=== PATIENT | female | born 1970 | race African-American/Black ===

== ENCOUNTER 2019-05-19 08:07 | Inpatient (IN) ==
[2019-05-19 08:36] LABS: BASO# 0.02 X1000 (0.0-0.2); BASO% 0.4 % (0.0-0.8); EOS# 0.01 X1000 (0.0-0.7); EOS% 0.2 % (0.0-10.0); HEMATOCRIT 41.3 % (37.0-47.0); IMM GRAN# 0.02 X1000 (0.0-0.04); IMM GRAN% 0.4 % (0.0-0.5); LYMPH# 1.39 X1000 (1.2-3.4); LYMPH% 27.1 % (20.5-51.1); MCH 30.3 PG (27-31); MCHC 31.5 g/dL (33-37); MCV 96.3 FL (81-99); MONO% 9.8 % (1.7-9.3); MPV 10.1 FL (7.4-10.4); NEUT# 3.18 X1000 (1.4-6.5); NEUT% 62.1 % (42.2-75.2); PLT 166 X1000 (130-400); RBC 4.29 XMIL (4.2-5.4); RDW 15.6 % (11.5-14.5); WBC 5.12 X1000 (4.8-10.8)
[2019-05-19 09:00] LABS: INR 1.11; PROTIME 14.9 Seconds (11.0-16.0)
[2019-05-19 09:01] LABS: PTT 34.8 Seconds (22.3-41.8)
[2019-05-19 10:15] LABS: AGAP 17; ALBUMIN 3.7 g/dL (3.5-5.0); ALKALINE PHOSPHATASE 67 U/L (32-104); BUN 6 mg/dL (8-22); CALCIUM 8.9 mg/dL (8.8-10.2); CHLORIDE 103 mmol/L (98-107); CK PROFILE 153 U/L (24-173); COSMO 288; CREATININE 0.5 mg/dL (0.5-0.9); ESTIMATED GFR > 60; GLUCOSE 99 mg/dL (70-104); GOT 119 U/L (10-30); GPT 22 U/L (10-36); POTASSIUM 3.3 mmol/L (3.5-5.1); SODIUM 146 mmol/L (136-145); TCO2 26 mmol/L (25-35); TOTAL PROTEIN 7.2 g/dL (6.3-8.3)
[2019-05-19 11:41] LABS: URINE SOURCE VOIDED
[2019-05-19 12:04] LABS: BILIRUBIN URINE NEGATIVE (NEGATIVE); BLOOD URINE NEGATIVE (NEGATIVE); CLARITY VERY CLOUDY (CLEAR); COLOR YELLOW; GLUCOSE URINE NEGATIVE (NEGATIVE); KETONE URINE 1+(Small) mg/dL (NEGATIVE); LEUKOCYTES URINE TRACE (NEGATIVE); NITRITE URINE NEGATIVE (NEGATIVE); PROTEIN URINE 1+(30 mg/dL) mg/dL (NEGATIVE); SP GRAVITY URINE 1.015; UROBILINOGEN URINE 12 mg/dL
[2019-05-19 12:05] LABS: URINE BACTERIA 3+ /HFP; URINE EPITHELIAL CELLS <10 /HPF (<10)
[2019-05-19 12:09] LABS: UR AMPHETAMINES QUAL NONE DETECTED (NONE DETECT); UR BARBITUATES QUAL NONE DETECTED (NONE DETECT); UR BENZODIAZEPIN QUAL NONE DETECTED (NONE DETECT); UR CANNABINOIDS QUAL PRESUMPTIVE POSITIVE (NONE DETECT); UR COCAINE QUAL PRESUMPTIVE POSITIVE (NONE DETECT); UR METHADONE QUAL NONE DETECTED (NONE DETECT); UR METHAMPHETAMINE QUAL NONE DETECTED (NONE DETECT); UR OPIATES QUAL NONE DETECTED (NONE DETECT); UR OXYCODONE QUAL NONE DETECTED (NONE DETECT); UR PCP QUAL NONE DETECTED (NONE DETECT); UR PROPOXYPHENE QUAL NONE DETECTED (NONE DETECT); UR TCA QUAL NONE DETECTED (NONE DETECT)
[2019-05-20 06:35] LABS: BASO# 0.02 X1000 (0.0-0.2); BASO% 0.5 % (0.0-0.8); EOS# 0.05 X1000 (0.0-0.7); EOS% 1.2 % (0.0-10.0); HEMATOCRIT 35.5 % (37.0-47.0); HEMOGLOBIN 10.8 g/dL (12.0-16.0); IMM GRAN# 0.01 X1000 (0.0-0.04); IMM GRAN% 0.2 % (0.0-0.5); LYMPH# 1.67 X1000 (1.2-3.4); LYMPH% 39.1 % (20.5-51.1); MCH 29.2 PG (27-31); MCHC 30.4 g/dL (33-37); MCV 95.9 FL (81-99); MONO% 11.7 % (1.7-9.3); MPV 10.8 FL (7.4-10.4); NEUT# 2.02 X1000 (1.4-6.5); NEUT% 47.3 % (42.2-75.2); PLT 165 X1000 (130-400); RDW 15.2 % (11.5-14.5); WBC 4.27 X1000 (4.8-10.8)
[2019-05-20 06:57] LABS: AGAP 11; ALBUMIN 3.1 g/dL (3.5-5.0); ALKALINE PHOSPHATASE 59 U/L (32-104); BUN 5 mg/dL (8-22); CALCIUM 8.7 mg/dL (8.8-10.2); CHLORIDE 103 mmol/L (98-107); COSMO 282; CREATININE 0.4 mg/dL (0.5-0.9); ESTIMATED GFR > 60; GLUCOSE 93 mg/dL (70-104); GOT 83 U/L (10-30); GPT 18 U/L (10-36); MAGNESIUM 1.6 mg/dL (1.5-2.7); POTASSIUM 2.8 mmol/L (3.5-5.1); SODIUM 143 mmol/L (136-145); TCO2 29 mmol/L (25-35); TOTAL PROTEIN 6.4 g/dL (6.3-8.3)
[2019-05-21 06:39] LABS: HEMATOCRIT 35.5 % (37.0-47.0); HEMOGLOBIN 10.9 g/dL (12.0-16.0); MCH 29.8 PG (27-31); MCHC 30.7 g/dL (33-37); RBC 3.66 XMIL (4.2-5.4); WBC 4.66 X1000 (4.8-10.8)
[2019-05-21 06:44] LABS: AGAP 10; ALBUMIN 3.1 g/dL (3.5-5.0); ALKALINE PHOSPHATASE 55 U/L (32-104); BUN 6 mg/dL (8-22); CALCIUM 8.8 mg/dL (8.8-10.2); CHLORIDE 106 mmol/L (98-107); COSMO 281; CREATININE 0.4 mg/dL (0.5-0.9); ESTIMATED GFR > 60; GLUCOSE 136 mg/dL (70-104); GOT 81 U/L (10-30); GPT 16 U/L (10-36); MAGNESIUM 1.3 mg/dL (1.5-2.7); POTASSIUM 3.5 mmol/L (3.5-5.1); SODIUM 141 mmol/L (136-145); TCO2 25 mmol/L (25-35); TOTAL PROTEIN 6.2 g/dL (6.3-8.3)
[2019-05-21 07:45] VITALS: BP 153/110
== END 2019-05-21 11:40 | disposition home or self-care (01) ==
LOC: P.ED 08:07 → P.ICU 12:41 → SUATTDRO 12:41 → P.ICU 14:09 → P.MEDSURG 05-20 15:25
PROVIDERS: ATTEND Internal Medicine